=== PATIENT | male | born 1990 | race Caucasian/White ===

== ENCOUNTER 2021-03-07 06:49 | Emergency (ER) | payer MEDICAID, OTHER ==
[~2021-03-07] VITALS: Ht 175.3 cm; Wt 96.2 kg
[2021-03-07 06:59] VITALS: BP_SYST 136
[2021-03-07] MEDS ORDERED: AZITHROMYCIN 250 MG TABLET PO ONE (07:15)
[2021-03-07] MEDS ORDERED: cefTRIAXone 250 MG VIAL IM ONE (07:15)
[2021-03-07 08:54] VITALS: BP_SYST 136
[2021-03-10 08:06] LABS: CHLAMYDIA TRACHOMATIS NAA Negative (Negative); NEISSERIA GONORRHOEAE NAA Negative (Negative)
== END 2021-03-07 08:54 | disposition home or self-care (01) ==
LOC: SED 06:49
DX: N34.2 Other urethritis (principal)
CPT/HCPCS: 87110; 87491; 87591; 96372; 99283; J0696; Q0144